=== PATIENT | female | born 1995 | race Hispanic/Latino ===

== ENCOUNTER 2017-06-09 20:07 | Emergency (ER) | payer SELFPAY ==
[~2017-06-09] VITALS: Ht 160 cm; Wt 54.4 kg
[2017-06-09] MEDS ORDERED: ALBUTEROL SULF 0.083% NEB SOLN 3 ML NEB NEB STA (20:20)
[2017-06-09 21:24] VITALS: BP 135/72
== END 2017-06-09 21:15 | disposition home or self-care (01) ==
LOC: FSED 20:07
DX: R05 Cough (principal); J20.9 Acute bronchitis, unspecified
CPT/HCPCS: 71046; 81003; 81025; 99282